=== PATIENT | female | born 1970 | race Caucasian/White ===

== ENCOUNTER 2021-09-18 12:53 | Outpatient (CLI) | payer BC ==
[2021-09-18 14:31] LABS: Hemoglobin 11.9 g/dL (12.0-15.5); INR-International Normal Ratio 0.9; Mean Corpuscular HGB CONC 33.9 g/dL (32.0-36.0); Mean Corpuscular Hemoglobin 29.8 pg (27.0-33.0); Mean Platelet Volume 9.9 fl (7.4-10.4); Platelet Count 318 10x3/uL (150-450); Prothrombin Time 10.4 sec (9.5-12.1); RBC Distribution Width 12.4 % (11.5-14.5); Red Blood Cell (RBC) Count 3.99 10x6/uL (3.90-5.03); White Blood Cell (WBC) Count 7.9 10x3/uL (3.5-10.5)
[2021-09-18 14:35] LABS: Anion Gap 14 mmol/L (10-20); BUN (Urea Nitrogen) 13 mg/dL (7.0-18.7); Calc. Creatinine Clearance 0 mL/min (70-130); Calcium 9.3 mg/dL (7.8-10.44); Carbon Dioxide 24 mmol/L (22-29); Chloride 106 mmol/L (98-107); Glucose 101 mg/dL (70-105); Potassium 3.6 mmol/L (3.5-5.1); Sodium 140 mmol/L (136-145)
[2021-09-19 16:09] LABS: SARS-CoV-2 PCR by NAA Not Detected (NotDetected)
== END 2021-09-18 12:54 | disposition home or self-care (01) ==
LOC: LABBT 12:53
PROVIDERS: ATTEND Urology
DX: Z01.818 Encounter for other preprocedural examination (principal); N20.2 Calculus of kidney with calculus of ureter; A49.9 Bacterial infection, unspecified; N39.0 Urinary tract infection, site not specified; N32.3 Diverticulum of bladder; Z16.30 Resistance to unspecified antimicrobial drugs; Z20.822 Contact with and (suspected) exposure to COVID-19
CPT/HCPCS: 80048; 85027; 85610; 85730; 93005; 93010; U0003; U0005

== ENCOUNTER 2021-11-26 07:40 | Outpatient (CLI) | payer BC | END 2021-11-26 07:41 | disposition home or self-care (01) | LOC: ULT 07:40 | PROVIDERS: ATTEND Urology | DX: N32.3 Diverticulum of bladder (principal); N39.0 Urinary tract infection, site not specified; N32.89 Other specified disorders of bladder; N13.2 Hydronephrosis with renal and ureteral calculous obstruction; Z96.0 Presence of urogenital implants | CPT/HCPCS: 51600; 74018; 74430; 76770 ==

== ENCOUNTER 2021-12-01 14:41 | Outpatient (CLI) | payer BC ==
[~2021-12-01 14:41] MED LIST: Iopamidol 370 76% 100 ML VIAL ONE
== END 2021-12-01 14:42 | disposition home or self-care (01) ==
LOC: BICCT 14:41
PROVIDERS: ATTEND Urology
DX: N39.0 Urinary tract infection, site not specified (principal); N32.3 Diverticulum of bladder; N13.2 Hydronephrosis with renal and ureteral calculous obstruction; N28.89 Other specified disorders of kidney and ureter; R93.41 Abnormal radiologic findings on diagnostic imaging of renal pelvis, ureter, or bladder; Z90.49 Acquired absence of other specified parts of digestive tract; Z90.710 Acquired absence of both cervix and uterus
CPT/HCPCS: 74178; Q9967

== ENCOUNTER 2022-11-03 09:10 | Day surgery (SDC) | payer BC ==
[2022-11-02 12:55] VITALS: BMI 28.1
[~2022-11-03 09:10] MED LIST changes: +Iopamidol 0 ML ONE; -Iopamidol 370 76% 100 ML VIAL ONE
[2022-11-03] MEDS ORDERED: Sodium Chloride 0.9% 100 ML ONE (11:32)
[2022-11-03] MEDS ORDERED: cefTRIAXone (ROCEPHIN) 2 GM VIAL ONE (11:32)
[2022-11-03] MEDS ORDERED: fentaNYL 50 mcg/mL 1 mL Vial ONE (11:36)
[2022-11-03] MEDS ORDERED: SUGAMMADEX SODIUM 200 MG/2 ML VIAL ONE (11:36)
[2022-11-03] MEDS ORDERED: Famotidine/PF 20 mg/2ml Vial ONE (11:36)
[2022-11-03] MEDS ORDERED: PHENYLEPHRINE-NS 100 MCG/ML 10 ML SYRINGE ONE (11:47)
[2022-11-03] MEDS ORDERED: PROPOFOL 200 MG/20 ML VIAL ONE (11:47)
[2022-11-03] MEDS ORDERED: NEOSTIGMINE 3 MG/3 ML SYR 3 MG/3 ML SYRINGE ONE (11:47)
[2022-11-03] MEDS ORDERED: Lidocaine 1% PF 5 ML VIAL ONE (11:47)
[2022-11-03] MEDS ORDERED: Rocuronium Bromide 10 MG/ML (10ML VIAL) ONE (11:47)
[2022-11-03] MEDS ORDERED: Ondansetron PF 4 MG/2 ML Vial ONE (11:47)
[2022-11-03] MEDS ORDERED: GLYCOPYRROLATE/PF 0.2 MG/ML VIAL ONE (11:47)
[2022-11-03] MEDS ORDERED: ePHEDrine Sulfate 50 MG/10 ML VIAL ONE (11:47)
[2022-11-03] MEDS ORDERED: Phenazopyridine HCl 100 MG TAB ONE (12:31)
[2022-11-03] MEDS ORDERED: Oxybutynin 5 MG TAB ONE (12:31)
== END 2022-11-03 13:53 | disposition home or self-care (01) ==
LOC: SDC 09:10
PROVIDERS: ATTEND Urology
PROC: 0T768DZ Dilation of Right Ureter with Intraluminal Device, Via Natural or Artificial Opening Endoscopic (ICD-10-PCS; principal; 2022-11-03)
DX: N13.6 Pyonephrosis (principal); B96.20 Unspecified Escherichia coli [E. coli] as the cause of diseases classified elsewhere; N32.3 Diverticulum of bladder; Z79.890 Hormone replacement therapy; Z79.899 Other long term (current) drug therapy; Z88.8 Allergy status to other drugs, medicaments and biological substances
CPT/HCPCS: 74018; 74420; C1769; C2617; J0696; J2405; J2704; J3010; J3490; Q9967; S0028

== ENCOUNTER 2023-02-02 12:48 | Outpatient (CLI) | payer BC | END 2023-02-02 12:49 | disposition home or self-care (01) | LOC: ULT 12:48 | PROVIDERS: ATTEND Urology | DX: N20.0 Calculus of kidney (principal); N32.3 Diverticulum of bladder; N28.89 Other specified disorders of kidney and ureter | CPT/HCPCS: 74018; 76770 ==

== ENCOUNTER 2023-07-01 07:28 | Outpatient (CLI) | payer BC | END 2023-07-01 07:29 | disposition home or self-care (01) | LOC: BICULT 07:28 | PROVIDERS: ATTEND Urology | DX: N20.0 Calculus of kidney (principal); N32.3 Diverticulum of bladder; N28.89 Other specified disorders of kidney and ureter | CPT/HCPCS: 74018; 76770 ==

== ENCOUNTER 2024-07-27 10:10 | Outpatient (CLI) | payer BC | END 2024-07-27 10:11 | disposition home or self-care (01) | LOC: BICULT 10:10 | PROVIDERS: ATTEND Urology | DX: N20.0 Calculus of kidney (principal); N39.0 Urinary tract infection, site not specified; N32.3 Diverticulum of bladder; Z16.30 Resistance to unspecified antimicrobial drugs | CPT/HCPCS: 74018; 76770 ==